=== PATIENT | female | born 1965 | race Caucasian/White ===

== ENCOUNTER → 2017-08-06 | Outpatient (CLI) | payer OTHER ==
[~2017-08-06] MED LIST: REGADENOSON 0.4 MG/5 ML SYRINGE ONE
== END | disposition home or self-care (01) ==
LOC: CFH 06:57
PROVIDERS: ATTEND Internal Medicine Cardiovascular Disease
DX: I10 Essential (primary) hypertension (principal); R01.1 Cardiac murmur, unspecified; R00.2 Palpitations; R06.02 Shortness of breath; R06.00 Dyspnea, unspecified
CPT/HCPCS: 78452; 93017; 93306; A9502; J2785

== ENCOUNTER 2018-01-05 11:46 | Observation (INO) | payer OTHER ==
[~2018-01-05] VITALS: Ht 170.2 cm; Wt 75.5 kg
[2018-01-05 12:27] LABS: BASOPHILS # (AUTO) 0.04 x10^3/uL (0-0.1); BASOPHILS % (AUTO) 1 % (0-1); EOSINOPHILS # (AUTO) 0.11 x10^3/uL (0-0.4); EOSINOPHILS % (AUTO) 2 % (1-7); LYMPHOCYTES # (AUTO) 3.17 x10^3/uL (1-3.4); LYMPHOCYTES % (AUTO) 43 % (22-44); MD NO; MEAN CORPUSCULAR HEMOGLOBIN 29.7 pg (27.0-34.8); MEAN CORPUSCULAR HGB CONC 33.5 g/dL (32.4-35.8); MEAN CORPUSCULAR VOLUME 88.5 fL (80-100); MEAN PLATELET VOLUME 9.5 fL (7.4-10.4); MONOCYTES # (AUTO) 0.33 x10^3/uL (0.2-0.8); MONOCYTES % (AUTO) 5 % (2-9); NEUTROPHILS # (AUTO) 3.66 x10^3/uL (1.8-6.8); NEUTROPHILS % (AUTO) 50 % (42-75); PLATELET COUNT 318 x10^3/uL (130-400); RED BLOOD COUNT 5.17 x10^6/uL (3.82-5.3); RED CELL DISTRIBUTION WIDTH 12.5 % (9.6-15.2)
[2018-01-05] MEDS ORDERED: NITROGLYCERIN OINT 2%, 1GM TP ONE ×2 (12:30→13:17)
[2018-01-05 12:38] LABS: ALBUMIN 4.3 g/dL (3.4-5.0); ANION GAP 1 mmol/L (5-15); CHLORIDE 108 mmol/L (98-107)
[2018-01-05 12:43] LABS: ALANINE AMINOTRANSFERASE 27 U/L (12-78); ALKALINE PHOSPHATASE 72 U/L (45-117); BILIRUBIN,TOTAL 0.6 mg/dL (0.2-1.0); CREATININE 1.33 mg/dL (0.55-1.02); TOTAL PROTEIN 8.6 g/dL (6.4-8.2); TROPONIN I < 0.015 ng/mL (0.000-0.045)
[2018-01-05] MEDS ORDERED: ASPIRIN 81 MG TABLET CHEW ONE (14:12)
[2018-01-05] MEDS ORDERED: METO25TA35 PO (14:16)
[2018-01-05] MEDS ORDERED: LEVO25TA4 PO (14:16)
[2018-01-05] MEDS ORDERED: ESTR0.3T PO (14:16)
[2018-01-05] MEDS ORDERED: BUSP7.5T3 PO (14:16)
[2018-01-05] MEDS ORDERED: ASPIRIN 81 MG TABLET CHEW PO ONE (14:30)
[2018-01-05] MEDS ORDERED: NITROGLYCERIN 0.4 MG BOTTLE (25 TABS) SL PRN (15:00)
[2018-01-05] MEDS ORDERED: NITROGLYCERIN 0.4 MG/SPRAY SL PRN (15:00)
[2018-01-05] MEDS ORDERED: LABETALOL 20 MG/4 ML IVPush PRN (15:00)
[2018-01-05] MEDS ORDERED: hydrALAzine 20 MG/ML, 1ML IVPush PRN (15:00)
[2018-01-05] MEDS ORDERED: LIDODERM 5% PATCH TD SCH (15:00)
[2018-01-05] MEDS ORDERED: ACETAMINOPHEN 325 MG TABLET PO PRN (15:00)
[2018-01-05] MEDS ORDERED: AMLO-150 PO (15:27)
[2018-01-05] MEDS ORDERED: SODIUM CHLORIDE 0.9% 1,000ML IVBOLUS ONE (15:30)
[2018-01-05] MEDS ORDERED: AMLODIPINE 5 MG TABLET PO SCH (15:30)
[2018-01-05 15:54] VITALS: BP 153/94
[2018-01-05 18:53] LABS: ANION GAP 6 mmol/L (5-15); CALCIUM 8.8 mg/dL (8.5-10.1); CHLORIDE 110 mmol/L (98-107); CREATININE 1.03 mg/dL (0.55-1.02)
[2018-01-05 18:57] LABS: TROPONIN I < 0.015 ng/mL (0.000-0.045)
[2018-01-05] MEDS ORDERED: BUSPIRONE 5 MG TABLET PO SCH (21:00)
[2018-01-05] MEDS ORDERED: METOPROLOL TARTRATE 25 MG TABLET PO SCH (21:00)
[2018-01-06] MEDS ORDERED: LEVOTHYROXINE 88 MCG TABLET PO SCH (09:00)
[2018-01-06] MEDS ORDERED: LISINOPRIL 10 MG TABLET PO SCH (09:00)
[2018-01-06] MEDS ORDERED: ESTROGEN CONJUGATED 0.3 MG TABLET PO SCH (09:00)
== END 2018-01-05 20:00 | disposition home or self-care (01) ==
LOC: ED 14:01 → UNDOADMOB 14:02 → INTOOBSV 14:02 → EDIP 14:02 → ED 14:14 → EDIP 14:40 → 5SO 14:45 → EDIP 14:45 → 5SO 14:45 → UNDODISOB 20:00
PROVIDERS: ADMIT Hospitalist; ATTEND Hospitalist
DX: R07.89 Other chest pain (principal); N17.9 Acute kidney failure, unspecified; E03.9 Hypothyroidism, unspecified; I12.9 Hypertensive chronic kidney disease with stage 1 through stage 4 chronic kidney disease, or unspecified chronic kidney disease; I16.9 Hypertensive crisis, unspecified; E86.0 Dehydration; I49.3 Ventricular premature depolarization; N18.9 Chronic kidney disease, unspecified; I25.2 Old myocardial infarction; F41.9 Anxiety disorder, unspecified; Z82.49 Family history of ischemic heart disease and other diseases of the circulatory system
CPT/HCPCS: 36415; 71046; 80048; 80053; 84443; 84484; 85025; 93005; 99284; G0378; J7030; 99285